=== PATIENT | female | born 1965 | race Caucasian/White ===

== ENCOUNTER 2018-03-07 11:50 | Outpatient (CLI) | payer BC ==
--- NOTE | 2018-03-07 14:36 | ULT ---
THYROID SONOGRAM: History: Thyroid nodule. FINDINGS: Right thyroid lobe is 3.2 cm and left is 2.8 cm. Isthmus is 0.2 cm. No solid or cystic masses. IMPRESSION: Small thyroid gland without focal abnormality. POS: [facility]
== END 2018-03-07 11:51 | disposition home or self-care (01) ==
LOC: BICULT 11:50
PROVIDERS: ATTEND Family Medicine
DX: E04.1 Nontoxic single thyroid nodule (principal); E07.9 Disorder of thyroid, unspecified
CPT/HCPCS: 76536